=== PATIENT | female | born 1985 | race Caucasian/White ===

== ENCOUNTER → 2017-12-03 | Outpatient (CLI) | payer SELFPAY ==
--- NOTE | 2017-12-03 15:39 | CT ---
HISTORY: Chest pain. Screening. Study: Cardiac calcium scoring. Technique: Multiple axial images of the chest were obtained on a [address] from the main pulmonary artery to the base of the heart. Noncontrast evaluation of the heart was performed fo r calcium scoring with prospective gating. Findings: A total calcium score of 1 is observed which is between the 50th and 75th percentile for fe males between the ages of 35 and 39. This score implies minimal identifiable plaque with very unlike ly, less than 10%, risk of coronary artery disease. LM: 0 LAD: 0 LCX: 0 RCA: 1 Extracardiac findings: No pathologically enlarged lymphadenopathy can be observed. No significant pericardial effusion can be identified. The visualized portions of the lung parenchyma are unremarkable. No lytic or blastic lesions can be identified within the visualized bony thorax. IMPRESSION: Total calcium score of 1. Reported By:
== END ==
LOC: RAD 13:50
PROVIDERS: ATTEND Physician Assistant
DX: Z13.6 Encounter for screening for cardiovascular disorders (principal)